=== PATIENT | female | born 1960 | race Asian ===

== ENCOUNTER 2020-06-07 04:09 | Emergency (ER) | payer OTHER ==
[~2020-06-07] VITALS: Ht 160 cm; Wt 77.1 kg
[2020-06-07 04:30] VITALS: BP 132/91
--- NOTE | 2020-06-07 04:30 | NUR ---
ED Nurse Note: walked in to ed c/o injury to right hand s/p lifting leg of 500lbs pt. reports hx tendonitis 11/06 with pressure like feeling. pt is here for worker's comp at [facility]. ermd at bedside, vss, nad, aaox4, ambulatory.
[2020-06-07 04:40] VITALS: BP 137/87
--- NOTE | 2020-06-07 04:40 | NUR ---
ER DISCHARGE NOTE: Patient is cleared to be discharged per ERMD, pt is aox4, on room air, with stable vital signs. pt was given dc instructions, pt was able to verbalize understanding, pt id band removed without complications. pt is able to ambulate with steady gait. pt took all belongings.
--- NOTE | 2020-06-07 05:05 | Emergency Room Report ---
History of Present Illness General Chief Complaint: Upper Extremity Injury Present Illness HPI Disclaimer: Please note that this report is being documented using [email or web address] technology. This can lead to erroneous entry secondary to incorrect interpretation by the dictating instrument. HPI: 59-year-old female history of hypertension, diabetes, tendinitis of the right hand presented for right hand injury. Apparently the patient was falling from the bed she caught the patient with her hand and exacerbated a pre-existing right thumb injury. She has a history of tendinitis in the right thumb is currently followed by hand surgery and is planning to have a steroid injection done later this month. On my exam she states her pain has improved. She denies any other injuries. Allergies: Coded Allergies: LISINOPRIL (Verified Allergy, Mild, cough, 06/07/20) COVID-19 Screening Contact w/high risk pt: No Experienced COVID-19 symptoms?: No COVID-19 Testing performed [employer]RE[employer]PA[employer]ER HELPER: No Patient History Reviewed Nursing Documentation: PMH: Agreed; PSxH: Agreed Review of Systems All Other Systems: negative except mentioned in HPI Physical Exam Vital Signs Date Time Temp Pulse Resp B/P (MAP) Pulse Ox O2 Delivery O2 Flow Rate FiO2 06/07/20 04:16 98.1 96 18 132/91 (105) 97 Room Air Sp02 EP Interpretation: reviewed, normal General Appearance: well appearing, no apparent distress Head: normocephalic, atraumatic Eyes: bilateral eye PERRL, bilateral eye EOMI ENT: hearing grossly normal, moist mucus membranes Neck: full range of motion, supple Respiratory: lungs clear, normal breath sounds, no rhonchi, no respiratory distress, no retraction, no wheezing Cardiovascular #1: normal peripheral pulses, regular rate, rhythm, no murmur Gastrointestinal: non tender, soft, non-distended, no guarding Musculoskeletal: other - Right hand without deformity, sensation intact throughout, assistant librarian strength intact, mild tenderness of the right thenar eminence no erythema or edema noted Neurologic: alert, oriented x3, no focal defects Skin: normal color, warm/dry Medical Decision Making Diagnostic Impression: Primary Impression: Sprain of hand, thumb, right Additional Impression: Tendinitis of thumb ER Course Patient presented for injury to the right hand. Differential included but not limited to sprain versus exacerbation of tendinitis less likely dislocation or fracture. Patient has a history of tendinitis in her right thumb. Her pain has improved. She declined any medication in the ER. She is currently followed by hand surgery for this issue. I did not believe x-rays were indicated at this time. There is no evidence of fracture or dislocation. She had full range of motion of her right thumb. She currently has a steroid injection scheduled for later this month. The plan is currently to discharge her home, however continue outpatient follow-up with him surgery. Given return precautions. Last Vital Signs Date Time Temp Pulse Resp B/P (MAP) Pulse Ox O2 Delivery O2 Flow Rate FiO2 06/07/20 04:40 97.4 76 16 137/87 98 Room Air Disposition: HOME, SELF-CARE Condition: Stable Referrals: NON PHYSICIAN (PCP) Patient Instructions: Tendinitis, Finger Sprain, [id number] Additional Instructions: Patient is instructed to follow-up with her primary care doctor, primary care clinic or county clinic in 1 to 2 days. Patient instructed to return for any worsening symptoms or concerns. Choco Garcia M.D. Jun 07, 2020 05:05
== END 2020-06-07 04:40 | disposition home or self-care (01) ==
LOC: EMR 04:40
DX: S63.601A Unspecified sprain of right thumb, initial encounter (principal); X58.XXXA Exposure to other specified factors, initial encounter; Y92.9 Unspecified place or not applicable; Y99.0 Civilian activity done for income or pay; Z88.8 Allergy status to other drugs, medicaments and biological substances; M77.9 Enthesopathy, unspecified
CPT/HCPCS: 99281